=== PATIENT | male | born 1945 | race Caucasian/White ===

== ENCOUNTER 2019-06-12 08:47 | Emergency (ER) | payer OTHER ==
[~2019-06-12] VITALS: Ht 182.9 cm; Wt 78.0 kg
--- NOTE | 2019-06-12 09:03 | NUR ---
PT BIBA FROM HOME [facility] FOR VARICOSE VEIN POPPED ON RLE. EMS ESTIMATED 250 CC BLOOD. PT HAS HX OF SAME, HAD BLOOD TX ONCE FOR SAME. HX ANEMIA, BONE MARROW BIOPSY PLANNED FOR NEXT WK TO DETERMINE CAUSE. PT PALE, COOL SKIN. VSS. BP WNL. BLEEDING CONTROLLED, PRESSURE BANDAGE IN PLACE, LEFT IN PLACE. DENIES WEAKNESS. NO BLOOD THINNERS. PICKED AT VEIN AND THAT IS HOW IT POPPED. 2+ PULSES THROUGHOUT. CALL [facility] IN REACH. AWAITING MD ZAMORA.
[2019-06-12] MEDS ORDERED: OMEP20TA62 PO (09:12)
[2019-06-12] MEDS ORDERED: FLUT9.9S NAS (09:12)
[2019-06-12] MEDS ORDERED: CLON1TAB23 PO (09:12)
[2019-06-12] MEDS ORDERED: ATEN25TA PO (09:12)
[2019-06-12] MEDS ORDERED: LIDOCAINE 1%-EPI 1:100K, 20ML ONE (09:24)
[2019-06-12] MEDS ORDERED: PLEASE ENTER ALLERGIES MC SCH (09:30)
[2019-06-12] MEDS ORDERED: LIDOCAINE 1%-EPI 1:100K, 20ML SQ ONE (09:30)
--- NOTE | 2019-06-12 09:48 | NUR ---
IN ROOM TO SUTURE VARICOSE VEIN
[2019-06-12 11:06] LABS: ALBUMIN 3.3 g/dL (3.4-5.0); ANION GAP 3 mmol/L (5-15); CHLORIDE 107 mmol/L (98-107)
[2019-06-12 11:08] LABS: CREATININE 0.96 mg/dL (0.7-1.3)
--- NOTE | 2019-06-12 11:27 | NUR ---
AWAITING LAB WORK. NO BLEEDING. VSS. NO NEEDS AT THIS TIME.
[2019-06-12 11:38] LABS: MEAN CORPUSCULAR HEMOGLOBIN 32.6 pg (27.5-34.5); MEAN CORPUSCULAR HGB CONC 31.5 g/dL (33.2-36.2); MEAN CORPUSCULAR VOLUME 103.4 fL (81-97); MEAN PLATELET VOLUME 10.4 fL (7.4-10.4); PLATELET COUNT 390 x10^3/uL (130-400); RED BLOOD COUNT 2.71 x10^6/uL (4.38-5.82); RED CELL DISTRIBUTION WIDTH 25.9 % (9.4-14.8)
[2019-06-12 11:39] LABS: BASOPHILS # (AUTO) 0.03 x10^3/uL (0-0.1); BASOPHILS % (AUTO) 0 % (0-1); EOSINOPHILS # (AUTO) 0.04 x10^3/uL (0-0.4); EOSINOPHILS % (AUTO) 0 % (1-7); LYMPHOCYTES # (AUTO) 1.03 x10^3/uL (1-3.4); LYMPHOCYTES % (AUTO) 9 % (22-44); MD MORPH REVIEW ONLY; MONOCYTES # (AUTO) 0.95 x10^3/uL (0.2-0.8); MONOCYTES % (AUTO) 9 % (2-9); NEUTROPHILS # (AUTO) 8.92 x10^3/uL (1.8-6.8); NEUTROPHILS % (AUTO) 81 % (42-75)
[2019-06-12 11:40] LABS: ANISOCYTOSIS 2+; HYPOCHROMIA 1+; OVALOCYTES 1+
[2019-06-12 11:41] LABS: BASOPHILLIC STIPPLING 1+; POLYCHROMASIA 1+; TEAR DROPS 1+
[2019-06-12 11:42] LABS: <PLATELET ESTIMATE> ADEQUATE; LARGE PLATELETS 1+; SCHISTOCYTES 1+
--- NOTE | 2019-06-12 11:55 | NUR ---
RECEIVED REPORT FROM MYA DISLA. ASSUMING CARE AT THIS TIME.
--- NOTE | 2019-06-12 11:56 | NUR ---
ALL RESULTS ARE BACK AT THIS TIME. CHART UP FOR RECHECK.
[2019-06-12 13:13] VITALS: BP 108/53
== END 2019-06-12 13:15 | disposition home or self-care (01) ==
LOC: ED 09:12
DX: I83.891 Varicose veins of right lower extremity with other complications (principal)
CPT/HCPCS: 12002; 36415; 80048; 82040; 85025; 99283